=== PATIENT | male | born 1950 | race African-American/Black ===

== ENCOUNTER 2016-06-30 10:49 | Day surgery (SDC) | payer OTHER ==
[~2016-06-30] VITALS: Ht 160 cm; Wt 84.4 kg
[~2016-06-30 10:49] MED LIST: ANALGESIC CREME85 GM TP; ARANESP40 MCG/0.4 SC; ARTIFICIAL TEAR15 M6 BOTH EYES; CAPSAICIN57 GM TP; CENTRAVITES 501 EACH PO; CHILD ASPIRIN81 M1 PO; DESYREL100 MG PO; FERROUS GLUCON324 MG PO; FOSRENOL500 MG PO; GERI-HYDROLAC140 GM TP; LEVOFLOXACIN500 MG PO; LIPITOR80 MG PO; LOPRESSOR25 MG PO; LUBRIDERM DAIL177 ML TP; MINIPRESS2 MG PO; NEURONTIN400 MG PO; NORVASC10 MG PO; NOVOLOG 10100 UNITS/ SC; NOVOLOG PE100 UNITS/ SC; PAXIL40 MG PO; PREDNISONE10 MG PO; PRILOSEC20 MG PO; PROAIR RESPICL90 MCG IH; TUMS500 MG PO
[2016-06-30 11:58] LABS: POINT-OF-CARE METER ID UU13113696
[2016-06-30 13:23] LABS: POINT-OF-CARE METER ID UU13113819
== END 2016-06-30 13:52 | disposition home or self-care (01) ==
LOC: CATH 10:49
PROVIDERS: Surgery
DX: T82.898A Other specified complication of vascular prosthetic devices, implants and grafts, initial encounter (principal); Y83.2 Surgical operation with anastomosis, bypass or graft as the cause of abnormal reaction of the patient, or of later complication, without mention of misadventure at the time of the procedure; Z99.2 Dependence on renal dialysis; I12.0 Hypertensive chronic kidney disease with stage 5 chronic kidney disease or end stage renal disease; E11.22 Type 2 diabetes mellitus with diabetic chronic kidney disease; N18.6 End stage renal disease; E78.5 Hyperlipidemia, unspecified
CPT/HCPCS: 82948; C1725; C1769; C1894; J1644; J2250; J3010

== ENCOUNTER 2016-07-07 15:10 | Day surgery (SDC) | payer OTHER ==
[2016-07-07 15:53] LABS: POINT-OF-CARE METER ID UU13113696
[2016-07-07 17:13] LABS: METH RESISTANT S AUREUS PCR NEGATIVE (NEGATIVE)
[2016-07-07 17:23] LABS: POINT-OF-CARE METER ID UU13113675; POINT-OF-CARE USER ID 515036437
[2016-07-07 17:28] LABS: PROBE CHECK PASS; SPECIMEN PROCESSING CONTROL PASS
== END 2016-07-07 17:48 | disposition home or self-care (01) ==
LOC: CATH 15:10
PROVIDERS: Surgery
DX: T82.858A Stenosis of other vascular prosthetic devices, implants and grafts, initial encounter (principal); Y83.2 Surgical operation with anastomosis, bypass or graft as the cause of abnormal reaction of the patient, or of later complication, without mention of misadventure at the time of the procedure; Z99.2 Dependence on renal dialysis; E11.22 Type 2 diabetes mellitus with diabetic chronic kidney disease; I12.0 Hypertensive chronic kidney disease with stage 5 chronic kidney disease or end stage renal disease; N18.6 End stage renal disease
CPT/HCPCS: 82948; 87641; C1725; C1769; C1894; J1644; J2250; J3010

== ENCOUNTER 2016-08-25 09:21 | Day surgery (SDC) | payer OTHER ==
[~2016-08-25] VITALS: Ht 160 cm; Wt 84.4 kg
[~2016-08-25 09:21] MED LIST changes: +SPIRIVA1 INHALATI IH
[2016-08-25 10:37] VITALS: BP 123/66
[2016-08-25] MEDS ORDERED: METOPROLOL TART25 MG PO ×2 (10:48→10:49)
[2016-08-25] MEDS ORDERED: LOPRESSOR25 MG PO (10:50)
[2016-08-25 10:58] VITALS: BP 123/66
[2016-08-25 11:00] LABS: ANION GAP 10 MEQ/L (2-14); CHLORIDE 91 MEQ/L (99-109); GFR ESTIMATE (CALCULATED) 11 mL/min/; GLUCOSE 128 mg/dL (70-99); POTASSIUM 3.8 MEQ/L (3.7-5.4); SAMPLE HEMOLYSIS CHECK 0; SAMPLE ICTERIC CHECK 0; SAMPLE LIPEMIA CHECK 0; SODIUM 136 MEQ/L (136-147); UREA NITROGEN (BUN) 29 mg/dL (9-23)
[2016-08-25 11:07] LABS: HEMATOCRIT 38.2 % (38.0-50.0); MCHC 29.6 G/DL (30.0-36.0); MCV 74.5 FL (86-99); MEAN PLAT.VOLUME 9.7 uM^3 (9.0-12.4); PLATELET COUNT 199 K/uL (156-360); RBC DIS.WIDTH-CV 15.4 % (11.8-14.6); RBC DIS.WIDTH-SD 40.3 % (39-53); RED BLOOD COUNT 5.13 M/uL (4.00-5.50); WHITE BLOOD COUNT 4.6 K/uL (4.1-10.2)
[2016-08-25 11:24] LABS: METH RESISTANT S AUREUS PCR NEGATIVE (NEGATIVE)
[2016-08-25 11:25] LABS: PROBE CHECK PASS; SPECIMEN PROCESSING CONTROL PASS
[2016-08-25 14:50] LABS: POINT-OF-CARE METER ID UU13113675; POINT-OF-CARE USER ID 515036437
[2016-08-25 14:57] VITALS: BP 98/59
[2016-08-25 15:57] VITALS: BP 112/69
== END 2016-08-25 16:07 | disposition home or self-care (01) ==
LOC: SDC 09:21
PROVIDERS: Surgery
PROC: 03180ZD Bypass Left Brachial Artery to Upper Arm Vein, Open Approach (ICD-10-PCS; principal; 2016-08-25)
DX: I12.0 Hypertensive chronic kidney disease with stage 5 chronic kidney disease or end stage renal disease (principal); E11.22 Type 2 diabetes mellitus with diabetic chronic kidney disease; N18.6 End stage renal disease; Z99.2 Dependence on renal dialysis; E78.5 Hyperlipidemia, unspecified; M19.90 Unspecified osteoarthritis, unspecified site; Z79.1 Long term (current) use of non-steroidal anti-inflammatories (NSAID); Z88.8 Allergy status to other drugs, medicaments and biological substances
CPT/HCPCS: 80048; 82948; 85027; 87641; 93005; J0690; J1644; J2720; J3010

== ENCOUNTER 2016-10-20 10:22 | Day surgery (SDC) | payer OTHER ==
[~2016-10-20 10:22] MED LIST changes: +METOPROLOL TART25 MG PO
[2016-10-20] MEDS ORDERED: HYDROXYZINE HCL10 MG PO (11:15)
[2016-10-20] MEDS ORDERED: VITAMIN D31000 UNI2 PO (11:16)
[2016-10-20 11:21] LABS: POINT-OF-CARE METER ID UU13113696
[2016-10-20 12:54] LABS: METH RESISTANT S AUREUS PCR NEGATIVE (NEGATIVE)
[2016-10-20 12:55] LABS: PROBE CHECK PASS; SPECIMEN PROCESSING CONTROL PASS
== END 2016-10-20 11:58 | disposition home or self-care (01) ==
LOC: CATH 10:22
PROVIDERS: Surgery
DX: T82.858A Stenosis of other vascular prosthetic devices, implants and grafts, initial encounter (principal); I12.0 Hypertensive chronic kidney disease with stage 5 chronic kidney disease or end stage renal disease; E11.22 Type 2 diabetes mellitus with diabetic chronic kidney disease; N18.6 End stage renal disease; Z99.2 Dependence on renal dialysis; M19.90 Unspecified osteoarthritis, unspecified site; E78.5 Hyperlipidemia, unspecified; Z96.643 Presence of artificial hip joint, bilateral; Z79.82 Long term (current) use of aspirin; Z79.4 Long term (current) use of insulin; Y83.2 Surgical operation with anastomosis, bypass or graft as the cause of abnormal reaction of the patient, or of later complication, without mention of misadventure at the time of the procedure
CPT/HCPCS: 82948; 87641; C1725; C1769; C1894; J1644; J2250; J3010

== ENCOUNTER 2016-11-22 09:28 | Day surgery (SDC) | payer OTHER ==
[~2016-11-22 09:28] MED LIST changes: +HYDROXYZINE HCL10 MG PO; +VITAMIN D31000 UNI2 PO
[2016-11-22] MEDS ORDERED: VIAGRA25 MG PO (09:58)
[2016-11-22 10:09] LABS: POINT-OF-CARE METER ID UU13113696
[2016-11-22 11:18] LABS: METH RESISTANT S AUREUS PCR NEGATIVE (NEGATIVE)
[2016-11-22 11:20] LABS: PROBE CHECK PASS; SPECIMEN PROCESSING CONTROL PASS
== END 2016-11-22 11:55 | disposition home or self-care (01) ==
LOC: CATH 09:28
PROVIDERS: Surgery
PROC: 05HY33Z Insertion of Infusion Device into Upper Vein, Percutaneous Approach (ICD-10-PCS; principal; 2016-11-22)
PROC: B51W1ZZ Fluoroscopy of Dialysis Shunt/Fistula using Low Osmolar Contrast (ICD-10-PCS; principal; 2016-11-22)
PROC: 3E03317 Introduction of Other Thrombolytic into Peripheral Vein, Percutaneous Approach (ICD-10-PCS; principal; 2016-11-22)
PROC: 057Y3ZZ Dilation of Upper Vein, Percutaneous Approach (ICD-10-PCS; principal; 2016-11-22)
DX: T82.858A Stenosis of other vascular prosthetic devices, implants and grafts, initial encounter (principal); I12.0 Hypertensive chronic kidney disease with stage 5 chronic kidney disease or end stage renal disease; E11.22 Type 2 diabetes mellitus with diabetic chronic kidney disease; N18.6 End stage renal disease; Z99.2 Dependence on renal dialysis; E78.00 Pure hypercholesterolemia, unspecified; Z79.82 Long term (current) use of aspirin; Z79.4 Long term (current) use of insulin
CPT/HCPCS: 82948; 87641; C1725; C1769; C1894; J1644; J2250; J3010

== ENCOUNTER → 2016-12-10 | Outpatient (CLI) | payer OTHER ==
[~2016-12-10] MED LIST changes: +VIAGRA25 MG PO
== END | disposition home or self-care (01) ==
LOC: AMB 10:16
PROC: 05PYX3Z Removal of Infusion Device from Upper Vein, External Approach (ICD-10-PCS; principal; 2016-12-10)
DX: N18.6 End stage renal disease (principal)

== ENCOUNTER 2017-03-02 12:37 | Day surgery (SDC) | payer OTHER ==
[~2017-03-02] VITALS: Ht 157.5 cm; Wt 82.5 kg
[~2017-03-02 12:37] MED LIST changes: +METOPROLOL TART50 MG PO
[2017-03-02] MEDS ORDERED: PROAIR RESPICL90 MCG PO (13:33)
[2017-03-02 14:51] LABS: METH RESISTANT S AUREUS PCR NEGATIVE (NEGATIVE)
[2017-03-02 14:54] LABS: PROBE CHECK PASS; SPECIMEN PROCESSING CONTROL PASS
== END 2017-03-02 14:51 | disposition home or self-care (01) ==
LOC: CATH 12:37
PROVIDERS: Surgery
DX: T82.858A Stenosis of other vascular prosthetic devices, implants and grafts, initial encounter (principal); I12.0 Hypertensive chronic kidney disease with stage 5 chronic kidney disease or end stage renal disease; E11.22 Type 2 diabetes mellitus with diabetic chronic kidney disease; N18.6 End stage renal disease; Z99.2 Dependence on renal dialysis; E78.00 Pure hypercholesterolemia, unspecified; Z87.891 Personal history of nicotine dependence
CPT/HCPCS: 87641; C1725; C1874; C1894; J1644; J2250; J3010

== ENCOUNTER 2017-07-08 10:18 | Day surgery (SDC) | payer OTHER ==
[~2017-07-08] VITALS: Ht 160 cm; Wt 84.0 kg
[~2017-07-08 10:18] MED LIST changes: +PROAIR RESPICL90 MCG PO
== END 2017-07-08 14:05 | disposition home or self-care (01) ==
LOC: CATH 10:18
PROVIDERS: Surgery
DX: T82.41XA Breakdown (mechanical) of vascular dialysis catheter, initial encounter (principal); Y83.2 Surgical operation with anastomosis, bypass or graft as the cause of abnormal reaction of the patient, or of later complication, without mention of misadventure at the time of the procedure; I12.0 Hypertensive chronic kidney disease with stage 5 chronic kidney disease or end stage renal disease; E11.22 Type 2 diabetes mellitus with diabetic chronic kidney disease; N18.6 End stage renal disease; Z99.2 Dependence on renal dialysis; Z87.891 Personal history of nicotine dependence; E78.00 Pure hypercholesterolemia, unspecified
CPT/HCPCS: 82948; 87641; C1725; C1769; C1874; C1894; J1644; J2250; J3010